=== PATIENT | female | born 1985 | race Caucasian/White ===

== ENCOUNTER 2018-05-11 12:37 | Emergency (ER) | payer OTHER ==
[~2018-05-11] VITALS: Ht 160 cm; Wt 104.3 kg
[2018-05-11 12:40] VITALS: BP 147/92
== END 2018-05-11 13:57 | disposition home or self-care (01) ==
LOC: ED 13:51
DX: S93.612A Sprain of tarsal ligament of left foot, initial encounter (principal); X58.XXXA Exposure to other specified factors, initial encounter; Y93.89 Activity, other specified; Y99.8 Other external cause status; Y92.69 Other specified industrial and construction area as the place of occurrence of the external cause
CPT/HCPCS: 99284